=== PATIENT | female | born 1940 | race Caucasian/White ===

== ENCOUNTER 2019-06-19 15:02 | Emergency (ER) | payer MEDICARE, MEDICAID ==
[~2019-06-19] VITALS: Ht 160 cm; Wt 68.2 kg
[2019-06-19] MEDS ORDERED: NS 500 ML IV ONE (15:30)
[2019-06-19] MEDS ORDERED: ATOR1TAB21 PO (15:58)
[2019-06-19] MEDS ORDERED: RANI1SYP PO (15:59)
[2019-06-19] MEDS ORDERED: DONE1TAB62 PO (16:00)
[2019-06-19 16:03] LABS: BASO % 0.3 % (0.0-1.0); EOS # 0.1 10^3/uL (0.0-0.5); EOS % 0.4 % (0.0-3.0); HEMATOCRIT 47.2 % (36.0-47.0); HEMOGLOBIN 15.4 g/dl (12.0-15.5); LYMPH # 2.9 10^3/uL (1.5-5.0); LYMPH % 20.8 % (24.0-44.0); MEAN CORPUSCULAR HEMOGLOBIN 29.8 pg (27.0-33.0); MEAN CORPUSCULAR HGB CONC 32.6 g/dl (32.0-36.5); MEAN CORPUSCULAR VOLUME 91.3 fl (80.0-96.0); MONO # 0.8 10^3/uL (0.0-0.8); MONO % 5.9 % (0.0-5.0); NEUTROPHILS # 10.1 10^3/uL (1.5-8.5); NEUTROPHILS % 72.2 % (36.0-66.0); PLATELET COUNT, AUTOMATED 257 10^3/uL (150-450); RED BLOOD COUNT 5.17 10^6/uL (4.00-5.40); WHITE BLOOD COUNT 13.9 10^3/uL (4.0-10.0)
[2019-06-19 16:17] LABS: INR 0.97; PROTHROMBIN TIME 12.6 SECONDS (11.8-14.0)
[2019-06-19 16:27] LABS: ALT/SGPT 18 U/L (12-78); BILIRUBIN,DIRECT 0.1 MG/DL (0.0-0.2); BILIRUBIN,TOTAL 0.4 MG/DL (0.2-1.0); BLOOD UREA NITROGEN 10 MG/DL (7-18); CALCIUM LEVEL 8.5 MG/DL (8.8-10.2); CARBON DIOXIDE LEVEL 24 MEQ/L (21-32); CHLORIDE LEVEL 107 MEQ/L (98-107); CK-MB VALUE MASS 6.6 NG/ML (<3.6); CPK CREATINE PHOSPHOKINASE 72 U/L (26-192); CREATININE FOR GFR 0.69 MG/DL (0.55-1.30); GLOMERULAR FILTRATION RATE > 60.0 (>39); GLUCOSE, FASTING 145 MG/DL (70-100); LIPASE 106 U/L (73-393); MB/CK RELATIVE INDEX 9.17 (< OR =4); SODIUM LEVEL 141 MEQ/L (136-145); TOTAL PROTEIN 6.3 GM/DL (6.4-8.2)
[2019-06-19] MEDS ORDERED: NS 1,000 ML IV ONE (16:45)
[2019-06-19] MEDS ORDERED: cefTRIAXone SOD 2 GM in D5W MINI-BAG PLUS 50 ML IV ONE (16:45)
[2019-06-19] MEDS ORDERED: RANI150T14 PO (17:01)
[2019-06-19] MEDS ORDERED: CIPR-249 PO (18:05)
--- NOTE | 2019-06-19 18:26 | REP ---
REASON FOR EXAM: Chest pain. COMPARISON: Multiple, the latest 10/07/2017. The technique utilized in obtaining the radiograph has magnified the cardiac silhouette and accentuated the interstitial markings. There is a hiatal hernia status quo. There is mild cardiomegaly accentuated by technique status quo. There is evidence of mild fibrotic change status quo. No acute patchy parenchymal opacities or pleural effusions have developed. The osseous structures are stable and intact. IMPRESSION:No acute cardiopulmonary disease. Findings as described above. Electronically Signed by Phil Paredes DO 06/22/2019 04:12 P
[2019-06-19 19:19] VITALS: BP 90/61
--- NOTE | 2019-06-21 08:00 | ECGEPIP ---
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
== END 2019-06-19 19:40 | disposition left against medical advice (07) ==
LOC: EDBD 15:02 → M ED 15:02
DX: A41.9 Sepsis, unspecified organism (principal); N39.0 Urinary tract infection, site not specified; R00.0 Tachycardia, unspecified; R79.89 Other specified abnormal findings of blood chemistry; I95.9 Hypotension, unspecified; E11.9 Type 2 diabetes mellitus without complications; F03.90 Unspecified dementia, unspecified severity, without behavioral disturbance, psychotic disturbance, mood disturbance, and anxiety; Z79.899 Other long term (current) drug therapy
CPT/HCPCS: 71045; 80048; 80076; 81001; 82550; 82553; 83605; 83690; 84484; 85025; 85610; 87040; 87077; 87088; 87186; 93005; 93041; 94760; 96365; 96366; 99284; J0696

== ENCOUNTER → 2022-06-26 | Outpatient (CLI) | payer MEDICARE, MEDICAID ==
[~2022-06-26] MED LIST: ATOR1TAB21 PO; CIPR-249 PO; DONE1TAB64 PO; RANI150T14 PO; RANI1SYP PO
== END ==
LOC: M WUC 15:07
PROVIDERS: ATTEND Internal Medicine
DX: R05.9 Cough, unspecified (principal)

== ENCOUNTER → 2022-07-26 | Outpatient (CLI) | payer MEDICARE, MEDICAID ==
[2022-07-26 17:14] LABS: BASO # 0.1 10^3/uL (0.0-0.2); BASO % 0.6 % (0.0-1.0); EOS # 0.3 10^3/uL (0.0-0.5); EOS % 2.8 % (0.0-3.0); HEMATOCRIT 35.8 % (36.0-47.0); HEMOGLOBIN 11.2 g/dl (12.0-15.5); LYMPH # 4.8 10^3/uL (1.5-5.0); LYMPH % 46.7 % (24.0-44.0); MEAN CORPUSCULAR HEMOGLOBIN 28.6 pg (27.0-33.0); MEAN CORPUSCULAR HGB CONC 31.3 g/dl (32.0-36.5); MEAN CORPUSCULAR VOLUME 91.6 fl (80.0-96.0); MONO # 0.7 10^3/uL (0.0-0.8); MONO % 6.9 % (2.0-8.0); NEUTROPHILS # 4.4 10^3/uL (1.5-8.5); NEUTROPHILS % 42.7 % (36.0-66.0); PLATELET COUNT, AUTOMATED 406 10^3/uL (150-450); RED BLOOD COUNT 3.91 10^6/uL (4.00-5.40); WHITE BLOOD COUNT 10.3 10^3/uL (4.0-10.0)
[2022-07-26 18:54] LABS: ALT/SGPT 34 U/L (12-78); BILIRUBIN,TOTAL 0.4 MG/DL (0.2-1.0); BLOOD UREA NITROGEN 5 MG/DL (7-18); CALCIUM LEVEL 8.2 MG/DL (8.8-10.2); CARBON DIOXIDE LEVEL 24 MEQ/L (21-32); CHLORIDE LEVEL 110 MEQ/L (98-107); CREATININE FOR GFR 0.52 MG/DL (0.55-1.30); GLOMERULAR FILTRATION RATE > 60.0 (>32); GLUCOSE, FASTING 137 MG/DL (70-100); POTASSIUM SERUM 3.8 MEQ/L (3.5-5.1); SODIUM LEVEL 144 MEQ/L (136-145); TOTAL PROTEIN 4.7 GM/DL (6.4-8.2)
== END ==
LOC: M WUC 11:10
PROVIDERS: ATTEND Psychiatry & Neurology Neurology
DX: R56.9 Unspecified convulsions (principal); Z51.81 Encounter for therapeutic drug level monitoring; Z79.899 Other long term (current) drug therapy

== ENCOUNTER 2023-03-10 13:44 | Inpatient (IN) | payer MEDICARE, MEDICAID ==
[2023-03-10 15:49] VITALS: BP 101/52; TEMP 93.2; O2SAT 100
[2023-03-10 16:00] VITALS: O2SAT 99
[2023-03-10 16:15] VITALS: BP 97/48; TEMP 93; O2SAT 100
[2023-03-10 17:00] VITALS: BP 105/54; TEMP 93; O2SAT 97
[2023-03-10 18:00] VITALS: BP 109/58; TEMP 93; O2SAT 100
[2023-03-10] MEDS ORDERED: levETIRAcetam INJection 500 MG in D5W MINI-BAG PLUS 100 ML IV ONE (18:00)
[2023-03-10] MEDS ORDERED: LEVO50TA5 GT (18:07)
[2023-03-10] MEDS ORDERED: CLOB10TA15 GT (18:07)
[2023-03-10] MEDS ORDERED: ACET1TAB55 GT (18:07)
[2023-03-10] MEDS ORDERED: ELIQ5TAB GT (18:07)
[2023-03-10] MEDS ORDERED: POLY17PO18 GT (18:07)
[2023-03-10] MEDS ORDERED: HUMA100I5 SQ (18:07)
[2023-03-10] MEDS ORDERED: FURO40TA2 GT (18:07)
[2023-03-10] MEDS ORDERED: OMEP-173 GT (18:07)
[2023-03-10] MEDS ORDERED: CEFD250S26 GT (18:07)
[2023-03-10] MEDS ORDERED: POTA1TAB23 GT (18:07)
[2023-03-10] MEDS ORDERED: ALBU2.5V10 INH (18:07)
[2023-03-10] MEDS ORDERED: LACO10SO10 PO (18:07)
[2023-03-10] MEDS ORDERED: LEVE500T5 GT (18:07)
[2023-03-10] MEDS ORDERED: HOME MED LIST COMPLETE! XX SCH (18:10)
== END 2023-03-10 19:37 | disposition home or self-care (01) | DRG 951 ==
LOC: M ICU 15:32
PROVIDERS: ADMIT Internal Medicine Pulmonary Disease; ATTEND Internal Medicine Pulmonary Disease
DX: Z51.5 Encounter for palliative care (principal); R40.20 Unspecified coma; E46 Unspecified protein-calorie malnutrition; Z99.11 Dependence on respirator [ventilator] status; D69.3 Immune thrombocytopenic purpura; J96.10 Chronic respiratory failure, unspecified whether with hypoxia or hypercapnia; R40.3 Persistent vegetative state; R68.0 Hypothermia, not associated with low environmental temperature; R00.1 Bradycardia, unspecified; I69.018 Other symptoms and signs involving cognitive functions following nontraumatic subarachnoid hemorrhage; G30.9 Alzheimer's disease, unspecified; F02.80 Dementia in other diseases classified elsewhere, unspecified severity, without behavioral disturbance, psychotic disturbance, mood disturbance, and anxiety; E03.9 Hypothyroidism, unspecified; L89.159 Pressure ulcer of sacral region, unspecified stage; Z86.711 Personal history of pulmonary embolism; G40.909 Epilepsy, unspecified, not intractable, without status epilepticus; Z79.01 Long term (current) use of anticoagulants; Z79.890 Hormone replacement therapy; Z79.899 Other long term (current) drug therapy; Z79.891 Long term (current) use of opiate analgesic; R60.1 Generalized edema; Z66 Do not resuscitate